=== PATIENT | female | born 1990 | race American Indian/Alaskan Native ===

== ENCOUNTER 2019-09-24 21:41 | Emergency (ER) | payer MEDICAID ==
[2019-09-24 21:52] VITALS: BP 120/80
--- NOTE | 2019-09-24 22:07 | Emergency Department Report ---
Blank Doc - Documentation Documentation: 29-year-old female that presents with n/v. Stated is about 6 weeks . This initial assessment/diagnostic orders/clinical plan/treatment(s) is/are subject to change based on patient's health status, clinical progression and re- assessment by fellow clinical providers in the ED. Further treatment and workup at subsequent clinical providers discretion. Patient/guardians urged not to elope from the ED as their condition may be serious if not clinically assessed and managed. Initial orders include: 1- Patient sent to [facility] for further evaluation and treatment 2-labs
[2019-09-24 22:44] LABS: Hematocrit 35.8 % (30.3-42.9); Hemoglobin 12.3 gm/dl (10.1-14.3); Mean Corpuscular HGB Conc 35 % (30-34); Mean Corpuscular Volume 90 fl (79-97); Platelet Count 249 K/mm3 (140-440); Red Blood Count 3.98 M/mm3 (3.65-5.03); Red Cell Distribution Width 12.4 % (13.2-15.2)
[2019-09-24] MEDS ORDERED: ONDANSETRON 4 MG/2 ML INJ IV ONE (23:00)
[2019-09-24] MEDS ORDERED: SODIUM CHLORIDE 0.9% 1000 ML 1,000 ML IV ONE (23:00)
[2019-09-24 23:01] LABS: BUN/Creatinine Ratio 12; Blood Urea Nitrogen 7 mg/dL (7-17); Calcium 9.8 mg/dL (8.4-10.2); Hemolysis Index 3
[2019-09-24 23:54] LABS: Bilirubin,Urine NEG (Negative); Blood,Urine NEG (Negative); Color,Urine Yellow (Yellow); Mucus,Urine FEW /HPF; Protein,Urine <15 mg/dL mg/dL (Negative); Urobilinogen,Urine < 2.0 mg/dL (<2.0)
--- NOTE | 2019-09-24 23:54 | Emergency Department Report ---
Vomiting/Diarrhea - HPI Chief Complaint: Abdominal Pain Stated Complaint: 6WEEKS HYPEREMESIS/DEHYDRATION Time Seen by Provider: 09/24/19 22:06 Duration: 2 weeks Nausea/Vomiting Severity: Moderate Diarrhea Severity: None Symptoms: No Watery Diarrhea, No Bloody diarrhea, No Fever, No Able to Tolerate Fluids, No Recent Unusual Foods, No Recent Untreated Water, No Recent use of Antibiotics, No Family w/ Similar Symptoms, No Contacts w/ Similar Symptoms, No Rash, No Hematuria, No Recent URI Symptoms Other History: 29-year-old -[place] female presents to the emergency room for hyperemesis and dehydration 2 weeks. Patient states that she can approximate 6 weeks and is not able to hold down any fluids or food. Patient states that she's been taking antiemetic medication without much resolution. Patient reports that her animal breeder since her to the emergency room to be evaluated. ED Review of Systems ROS: Stated complaint: 6WEEKS HYPEREMESIS/DEHYDRATION Other details as noted in HPI Comment: All other systems reviewed and negative ED Past Medical Hx - Past Medical History Previous Medical History?: No - Surgical History Past Surgical History?: No - Social History Smoking Status: Never Smoker Substance Use Type: None - Medications Home Medications: Home Medications Medication Instructions Recorded Confirmed Last Taken Type Doxylamine Succinate [Nighttime 25 mg PO BID PRN #20 tablet 09/25/19 Unknown Rx Sleep-Aid] Debora Root [Debora] 250 mg PO QID PRN #40 capsule 09/25/19 Unknown Rx Pyridoxine HCl (Vitamin B6) 50 mg PO BID PRN #20 tablet 09/25/19 Unknown Rx [Pyridoxine HCl] Vomiting Diarrhea Exam - Exam General: Vital signs noted. No distress. Alert and acting appropriately. HEENT: Yes Moist Mucous Membranes, No Pharyngeal Erythema, No Pharyngeal Exudates, No Rhinorrhea, No Conjuctival Injection, No Frontal Tenderness, No Maxillary Tenderness Neck: No Adenopathy, No Rigidity Lungs: Yes Clear Lung Sounds, Yes Good Air Exchange, No Wheezes, No Stridor, No Cough, No Nasal Flaring, No Retractions, No Use of Accessory Muscles Heart exam: Regular: Yes, Murmur: No, Tachycardia: No Abdomen: Tenderness: No, Peritoneal Signs: No, Distention: No, Hyperactive Bowel sounds: No Skin exam: Rash: No, Edema: No, Normal turgor: Yes Neurologic: Alert and oriented, no deficits. Musculoskeletal: Unremarkable. ED Course Vital Signs 09/24/19 09/24/19 21:45 22:06 Temperature 97.9 F 97.9 F Pulse Rate 102 H 102 H Respiratory 18 18 Rate Blood Pressure 120/80 120/80 O2 Sat by Pulse 98 98 Oximetry ED Medical Decision Making - Lab Data Result diagrams: 09/24/19 22:32 09/24/19 22:32 - Medical Decision Making 29-year-old -[place] female presents to the emergency room for hyperemesis and dehydration 2 weeks. Patient states that she can approximate 6 weeks and is not able to hold down any fluids or food. Patient states that she's been taking antiemetic medication without much resolution. Patient reports that her animal breeder since her to the emergency room to be evaluated. Spoke with Ms. James Assistant Customer Service Manager For [facility]. She states that patient was given a Rx for [employer] as been set up and specialist. Critical care attestation.: If time is entered above; I have spent that time in minutes in the direct care of this critically ill patient, excluding procedure time. ED Disposition Clinical Impression: Hyperemesis gravidarum before end of 22 week gestation with carbohydrate depletion Disposition: DC-01 TO HOME OR SELFCARE Is pt being admited?: No Does the pt Need Aspirin: No Condition: Stable Instructions: Abdominal Pain (ED) Additional Instructions: Please take medications as prescribed. Advised these medications are the safest for her unborn baby. Recommended to follow up with your OB doctor in the next 2 days if symptoms persist or gets worse. Prescriptions: Debora Root [Debora] 250 mg PO QID PRN #40 capsule PRN Reason: Nausea And Vomiting Doxylamine Succinate [Nighttime Sleep-Aid] 25 mg PO BID PRN #20 tablet PRN Reason: Nausea And Vomiting Pyridoxine HCl (Vitamin B6) [Pyridoxine HCl] 50 mg PO BID PRN #20 tablet PRN Reason: Nausea And Vomiting Referrals: PRIMARY CARE, [Primary Care Provider] - 3-5 Days
[2019-09-25 02:06] LABS: Anisocytosis 1+; Band Neutrophils # (Manual) 0.1 K/mm3; Total Cells Counted 100
[2019-09-25 02:07] LABS: Platelet Estimate Consistent w Auto
== END 2019-09-25 03:15 | disposition home or self-care (01) ==
LOC: ED 21:41
DX: O21.0 Mild hyperemesis gravidarum (principal); O99.281 Endocrine, nutritional and metabolic diseases complicating pregnancy, first trimester; E86.0 Dehydration; Z79.899 Other long term (current) drug therapy; Z88.8 Allergy status to other drugs, medicaments and biological substances; Z3A.01 Less than 8 weeks gestation of pregnancy
CPT/HCPCS: 36415; 80048; 81001; 85007; 85025; 96361; 96374; 99283; J2405; J7030

== ENCOUNTER 2019-10-12 14:23 | Emergency (ER) | payer MEDICAID ==
[2019-10-12 14:32] VITALS: BP 101/68
[2019-10-12] MEDS ORDERED: METOCLOPRAMIDE 10 MG/2 ML INJ IV ONE (15:51)
[2019-10-12] MEDS ORDERED: SODIUM CHLORIDE 0.9% 1000 ML IV SOLN IV ONE (15:51)
--- NOTE | 2019-10-12 15:51 | Event Note ---
ED Screening Note Date of service: 10/12/19 Time: 15:49 ED Screening Note: 29 y o presents for hyperemesis gravidum with continueed vomitting, cant hold food down This initial assessment/diagnostic orders/clinical plan/treatment(s) is/are subject to change based on patients health status, clinical progression and re- assessment by fellow clinical providers in the ED. Further treatment and workup at subsequent clinical providers discretion. Patient/guardian urged not to elope from the ED as their condition may be serious if not clinically assessed and managed. Initial orders include: cbc, bmp ivf reglan
[2019-10-12 16:24] LABS: Basophils % (Auto) 0.8 % (0.0-1.8); Eosinophils % (Auto) 0.6 % (0.0-4.3); Hematocrit 37.4 % (30.3-42.9); Hemoglobin 13.4 gm/dl (10.1-14.3); Lymphocytes # (Auto) 1.1 K/mm3 (1.2-5.4); Lymphocytes % (Auto) 19.1 % (13.4-35.0); Mean Corpuscular HGB Conc 36 % (30-34); Mean Corpuscular Volume 89 fl (79-97); Monocytes # (Auto) 0.6 K/mm3 (0.0-0.8); Monocytes % (Auto) 10.6 % (0.0-7.3); Platelet Count 320 K/mm3 (140-440); Red Blood Count 4.23 M/mm3 (3.65-5.03); Red Cell Distribution Width 12.2 % (13.2-15.2)
[2019-10-12 16:44] LABS: BUN/Creatinine Ratio 20; Blood Urea Nitrogen 12 mg/dL (7-17); Calcium 10.8 mg/dL (8.4-10.2); Hemolysis Index 4
== END 2019-10-12 18:20 | disposition left against medical advice (07) ==
LOC: ED 14:23
DX: O21.8 Other vomiting complicating pregnancy (principal); Z3A.10 10 weeks gestation of pregnancy; Z53.21 Procedure and treatment not carried out due to patient leaving prior to being seen by health care provider
CPT/HCPCS: 36415; 80048; 83690; 85025

== ENCOUNTER 2020-03-06 22:56 | Outpatient (CLI) | payer MEDICAID ==
[2020-03-06 23:20] VITALS: BP 113/61
[2020-03-06] MEDS ORDERED: LACTATED RINGERS 1,000 ML IV ONE (23:37)
[2020-03-07 00:05] LABS: Bilirubin,Urine NEG (Negative); Blood,Urine NEG (Negative); Color,Urine Yellow (Yellow); Mucus,Urine FEW /HPF; Protein,Urine <15 mg/dL mg/dL (Negative)
== END 2020-03-07 00:50 | disposition home or self-care (01) ==
LOC: TRG 22:56 → APU 22:58 → TRG 03-07 00:50
PROVIDERS: ATTEND Obstetrics & Gynecology
DX: O47.03 False labor before 37 completed weeks of gestation, third trimester (principal); Z3A.31 31 weeks gestation of pregnancy
CPT/HCPCS: 59025; 81001